=== PATIENT | female | born 1965 ===

== ENCOUNTER 2017-12-27 06:21 | Day surgery (SDC) | payer SELFPAY ==
[2017-12-27 06:52] VITALS: O2SAT 100
[2017-12-27] MEDS ORDERED: Lactated Ringer's 1,000 ML IV ONE ×2 (07:37)
[2017-12-27] MEDS ORDERED: Propofol 10 mg/ml Inj (20 ML) ONE ×2 (07:37→08:42)
[2017-12-27] MEDS ORDERED: Lidocaine Hydrochloride 5 ML INJ ONE (07:38)
--- NOTE | 2017-12-27 08:09 | CP.SDSHP ---
Same Day Surgery H & P - History Proposed Procedure: colonoscopy Pre-Op Diagnosis: colon ca screening - Allergies Allergies: Allergies No Known Allergies Allergy (Unverified 09/20/16 09:41) - Physical Exam General Appearance: nl Vital Signs: Vital Signs 12/27/17 06:39 Temperature 97.1 F L Pulse Rate 75 Respiratory 19 Rate Blood Pressure 144/87 O2 Sat by Pulse 100 Oximetry Mental Status: Alert & Oriented x3 Neuro: WNL Heart: WNL Lungs: WNL GI: WNL - {Optional Preform as Required} Abdomen: WNL Rectal: WNL - Impression Impression: Colon ca screening. Colonoscopy Pt. Evaluated Today:Candidate for Anesthesia & Procedure: Yes - Date & Time Date: 12/27/17 Time: 08:09 Short Stay Discharge - Short Stay Discharge Admitting Diagnosis/Reason for Visit: SCREENING Disposition: HOME/ ROUTINE
[2017-12-27] MEDS ORDERED: Simethicone 40 mg/0.6 ml Liquid (30 ml) ONE (08:17)
[2017-12-27 09:18] VITALS: TEMP 96.8
[2017-12-27 10:01] VITALS: RESP 18
[2017-12-27 10:20] VITALS: BP 125/83; PULSE 57
== END 2017-12-27 10:14 | disposition home or self-care (01) ==
LOC: C.ENDO 06:21
PROVIDERS: ATTEND Internal Medicine
DX: Z12.11 Encounter for screening for malignant neoplasm of colon (principal); D12.0 Benign neoplasm of cecum; D12.4 Benign neoplasm of descending colon; D12.3 Benign neoplasm of transverse colon; K64.4 Residual hemorrhoidal skin tags; K64.8 Other hemorrhoids
CPT/HCPCS: 45380; 45385; 84703; 88305; J2704; J3010; J7120